=== PATIENT | female | born 1965 | race Caucasian/White ===

== ENCOUNTER 2019-10-20 13:02 | Emergency (ER) | payer BC ==
[~2019-10-20] VITALS: Ht 165.1 cm; Wt 71.7 kg
[~2019-10-20 13:02] MED LIST: HYDR-3101 PO; MELO15TA24 PO; METO25TA4 PO; PANT40TA5 PO; TRAM50TA PO
[2019-10-20 13:04] VITALS: BP 112/70
--- NOTE | 2019-10-20 13:11 | PCM.EKG ---
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
[2019-10-20 13:21] LABS: BASOPHIL % 0.2 % (0.0-0.2); EOSINOPHIL # 0.4 10^3/uL (0.0-0.2); EOSINOPHIL % 4.7 % (0.0-5.0); LYMPHOCYTES # 2.4 10^3/uL (1.0-4.8); LYMPHOCYTES % 26.1 % (24.0-44.0); MEAN CORP HGB 28.8 pg (26-34); MONOCYTES # 0.5 10^3/uL (0.3-0.8); MONOCYTES % 5.4 % (5.0-12.0); NEUTROPHIL # 5.8 10^3/uL (1.8-7.7); NEUTROPHILS % 63.5 % (41.0-85.0); RED CELL DISTRIBUTION WIDTH 13.8 % (11.5-14.5)
--- NOTE | 2019-10-20 13:27 | ER.PDOC ---
General Chief Complaint: Chest Pain-Cardiac Nature Stated Complaint: CHEST PAIN/SOB Time seen by MD: 13:22 Source: patient Exam Limitations: no limitations History of Present Illness Timing/Duration: 1/2 hour Severity/Quality: severe, pressure Radiation: no radiation Activities at Onset: rest Modifying Factors: nitroglycerin Aspirin Today: 325 mg x 1 Associated Symptoms: diaphoresis, nausea/vomiting, shortness of breath Allergies: Coded Allergies: No Known Allergies (Unverified , 04/20/19) Home Meds Active Scripts Pantoprazole Sodium (PANTOPRAZOLE SODIUM) 40 Mg Tablet.dr, 1 TAB PO DAILY, #30 TAB 0 Refills Prov:KILEY BUENO MD 04/23/19 Reported Medications Tramadol Hcl (TRAMADOL HCL) 50 Mg Tablet, 1 TAB PO BID PRN for PAIN, #60 TAB 02/27/18 Meloxicam (MELOXICAM) 15 Mg Tablet, 1 TAB PO DAILY, #30 TAB 2 Refills 02/27/18 Past Medical History Medical History: other Surgical History: cholecystectomy, hysterectomy, tubal Social History Alcohol Use: none Drug Use: none Reviewed Nursing Reviewed: Vital Signs, Abn. Noted All Other Systems: Reviewed and Negative Physical Exam General Appearance: No Apparent Distress, WD/WN HEENT: PERRL/EOMI, Normal ENT Inspection, TMs Normal, Pharynx Normal Neck: Non-Tender, Full Range of Motion, Supple, Normal Inspection Respiratory: chest non-tender, lungs clear, normal breath sounds, no respiratory distress, no accessory muscle use Extremities: Normal Range of Motion, Non-Tender, Normal Inspection, No Pedal Edema, No Calf Tenderness, Normal Capillary Refill Neurologic/Psychiatric: chronometer tester II-XII NML as Tested, No Motor/Sensory Deficits, Alert, Normal Mood/Affect, Oriented x 3 Skin: Normal Color, Warm/Dry Lymphatic: No Adenopathy Results/Orders Results/Orders Orders - JAZZ DONOHUE MD Cbc With Auto Diff (10/20/19 13:04) Comprehensive Metabolic Panel (10/20/19 13:04) Creatine Kinase (10/20/19 13:04) Creatine Kinase Mb (10/20/19 13:04) Troponin I (10/20/19 13:04) Probnp B-Type Counterintelligence Agent (10/20/19 13:04) PT (10/20/19 13:04) Partial Thromboplastin Time. (10/20/19 13:04) Helicobacter Pylori (10/20/19 13:04) D-Dimer (10/20/19 13:04) Xr Chest 1v (10/20/19 13:04) Ekg-Routine (10/20/19 13:04) Troponin I (10/20/19 15:48) Creatine Kinase Mb (10/20/19 15:48) Creatine Kinase (10/20/19 15:48) Vital Signs Date Time Temp Pulse Resp B/P (MAP) Pulse Ox O2 Delivery O2 Flow Rate FiO2 10/20/19 13:04 98.0 64 22 95 10/20/19 13:04 98.0 64 22 10/20/19 13:04 98.0 64 22 112/70 (84) 95 Room Air Laboratory Tests Test 10/20/19 13:09 10/20/19 16:07 White Blood Count 9.2 10^3/uL (4.5-11.0) Red Blood Count 4.66 10^6/uL (4.00-5.20) Hemoglobin 13.4 g/dL (12.0-15.0) Hematocrit 41.2 % (36.0-46.0) Mean Corpuscular Volume 88.4 fL (78-100) Mean Corpuscular Hemoglobin 28.8 pg (26-34) Mean Corpuscular Hemoglobin Concent 32.5 g/dL (33-37) L Red Cell Distribution Width 13.8 % (11.5-14.5) Platelet Count 296 10^3/uL (150-400) Mean Platelet Volume 10.0 fL (7.8-11.0) Neutrophils (%) (Auto) 63.5 % (41.0-85.0) Lymphocytes (%) (Auto) 26.1 % (24.0-44.0) Monocytes (%) (Auto) 5.4 % (5.0-12.0) Neutrophils # (Auto) 5.8 10^3/uL (1.8-7.7) Lymphocytes # (Auto) 2.4 10^3/uL (1.0-4.8) Monocytes # (Auto) 0.5 10^3/uL (0.3-0.8) Absolute Immature Granulocyte (auto 0.01 10^3 u/L (0-2) Immature Granulocytes % 0.10 % (0.00-0.50) Eosinophils % 4.7 % (0.0-5.0) Basophils % 0.2 % (0.0-0.2) Basophils # 0.0 10^3/uL (0.0-0.1) Eosinophil Count 0.4 10^3/uL (0.0-0.2) H Prothrombin Time 10.4 SEC (9.4-11.5) Prothrombin Time INR (Non-Therap) 1.0 Activated Partial Thromboplast Time 22.1 SEC (24.67-30.72) D-Dimer 0.44 mg/L (0.19-0.49) Sodium Level 144 mmol/L (132-145) Potassium Level 3.5 mmol/L (3.6-5.2) L Chloride Level 107.0 mmol/L (96-109) Carbon Dioxide Level 24.9 mmol/L (20.0-32) Anion Gap 15.6 Blood Urea Nitrogen 17 mg/dL (7-18) Creatinine 0.85 mg/dL (0.59-1.40) Estimated GFR () 84.7 (>/=60) BUN/Creatinine Ratio 20.0 Glucose Level 122 mg/dL (70-110) H Calcium Level 8.5 mg/dL (8.4-10.5) Total Bilirubin 0.2 mg/dL (0.2-1.0) Aspartate Amino Transferase (AST) 25 U/L (0-35) Alanine Aminotransferase (ALT) 21 U/L (12-78) Alkaline Phosphatase 131 U/L (50-136) Total Creatine Kinase 102 U/L (26-192) Pending Creatine Kinase MB 0.8 ng/mL (0.5-3.6) Pending Troponin I < 0.02 ng/mL (0.00-0.05) < 0.02 ng/mL (0.00-0.05) Pro-B-Type Natriuretic Peptide 63 pg/mL (0-125) Total Protein 6.5 g/dL (6.4-8.2) Albumin 3.7 g/dL (3.4-5.0) Globulin 2.8 Helicobacter pylori Screen NEGATIVE (NEGATIVE) EKG/XRAY/CT/US EKG: NSR, no ST T wave changes Course Sepsis Screening Results: Posi: POSITIVE SEPSIS RISK Sepsis Qualifier/Stage: SEPSIS RISK Duration or Total Time Spent w: 60 mins Vitals & review Data Vital Sign - Last 24 Hours 10/20/19 10/20/19 10/20/19 13:04 13:04 13:04 Temp 98.0 98.0 98.0 Pulse 64 64 64 Resp 22 22 22 B/P (MAP) 112/70 (84) Pulse Ox 95 95 O2 Delivery Room Air Laboratory Tests Test 10/20/19 13:09 10/20/19 16:07 White Blood Count 9.2 10^3/uL Red Blood Count 4.66 10^6/uL Hemoglobin 13.4 g/dL Hematocrit 41.2 % Mean Corpuscular Volume 88.4 fL Mean Corpuscular Hemoglobin 28.8 pg Mean Corpuscular Hemoglobin Concent 32.5 g/dL Red Cell Distribution Width 13.8 % Platelet Count 296 10^3/uL Mean Platelet Volume 10.0 fL Neutrophils (%) (Auto) 63.5 % Lymphocytes (%) (Auto) 26.1 % Monocytes (%) (Auto) 5.4 % Neutrophils # (Auto) 5.8 10^3/uL Lymphocytes # (Auto) 2.4 10^3/uL Monocytes # (Auto) 0.5 10^3/uL Absolute Immature Granulocyte (auto 0.01 10^3 u/L Immature Granulocytes % 0.10 % Eosinophils % 4.7 % Basophils % 0.2 % Basophils # 0.0 10^3/uL Eosinophil Count 0.4 10^3/uL Prothrombin Time 10.4 SEC Prothrombin Time INR (Non-Therap) 1.0 Activated Partial Thromboplast Time 22.1 SEC D-Dimer 0.44 mg/L Sodium Level 144 mmol/L Potassium Level 3.5 mmol/L Chloride Level 107.0 mmol/L Carbon Dioxide Level 24.9 mmol/L Anion Gap 15.6 Blood Urea Nitrogen 17 mg/dL Creatinine 0.85 mg/dL Estimated GFR () 84.7 BUN/Creatinine Ratio 20.0 Glucose Level 122 mg/dL Calcium Level 8.5 mg/dL Total Bilirubin 0.2 mg/dL Aspartate Amino Transf (AST/SGOT) 25 U/L Alanine Aminotransferase (ALT/SGPT) 21 U/L Alkaline Phosphatase 131 U/L Total Creatine Kinase 102 U/L Creatine Kinase MB 0.8 ng/mL Troponin I < 0.02 ng/mL < 0.02 ng/mL Pro-B-Type Natriuretic Peptide 63 pg/mL Total Protein 6.5 g/dL Albumin 3.7 g/dL Globulin 2.8 Helicobacter pylori Screen NEGATIVE Sepsis Infection Criteria Pres: Documented Infection LEVEL 1 SEPSIS INFECTION CRITE: Abdominal Pain LEVEL 2-SIRS (LIST ALL THAT AP: None/Not assessed Cardiovascular Evidence: Not Assessed or None Hematologic Evidence: None/Not assessed Hepatic Evidence: Elevated AST(SGOT)>72, Elevated ALT(SGPT)>90 Metabolic Evidence: None/Not assessed Neurological Evidence: None/Not assessed Respiratory Evidence: None/Not assessed Renal Evidence: None/Not assessed O2 Sat by Pulse Oximetry: 95 Departure Time of Disposition: 16:00 Disposition: 01 HOME, SELF-CARE Impression: Primary Impression: Angina pectoris Condition: Improved Referrals: AVILA VILLATORO MD (PCP) PRIMARY CARE PROVIDER Comments PATIENT DECLINED ADMISSION Duration or Time Spent with Pa: Elma M JAZZ DONOHUE MD Oct 20, 2019 13:27
--- NOTE | 2019-10-20 13:37 | DIREP ---
PROCEDURE:CHEST 1 VIEW COMPARISON:[facility], CR, XRAY CHEST 2 VWS, 04/17/2019, 03:28 AM. INDICATIONS:cp FINDINGS: LUNGS/PLEURA:No significant pulmonary parenchymal abnormalities. No effusions. Lungs are well-expanded and clear. No pneumonia, heart failure effusions are seen. No pneumothorax, pneumomediastinum, aortic aneurysm or mediastinal widening is seen. VASCULATURE:Normal. Unremarkable pulmonary vasculature. CARDIAC:Normal. No cardiac silhouette abnormality or cardiomegaly. MEDIASTINUM:Normal. No visible mass or adenopathy. BONES:Normal. No fracture or visible bony lesion. DJD in the right AC joint. OTHER:Negative. CONCLUSION:No acute findings in the single view of the chest. Dictated by: Jorge Luis Armstrong MD on 10/20/2019 at 01:35 PM
[2019-10-20 13:49] LABS: ALANINE AMINOTRANSFERASE(ML) 21 U/L (12-78); ALKALINE PHOSPHATASE 131 U/L (50-136); ASPARTATE AMINO TRANSFERASE 25 U/L (0-35); CALCIUM 8.5 mg/dL (8.4-10.5); GLUCOSE 122 mg/dL (70-110)
[2019-10-20 14:00] VITALS: BP 109/67
[2019-10-20 14:20] LABS: CARBON DIOXIDE 24.9 mmol/L (20.0-32)
[2019-10-20 15:00] VITALS: BP 113/71
[2019-10-20 15:45] VITALS: BP 118/71
--- NOTE | 2019-10-20 17:00 | NUR ---
UPDATE PATIENT REFUSES ADMIT AND WANTS TO SIGN OUT AMA.
== END 2019-10-20 17:17 | disposition left against medical advice (07) ==
LOC: EDBD 13:02 → ER 13:02
DX: I20.9 Angina pectoris, unspecified (principal); Z79.1 Long term (current) use of non-steroidal anti-inflammatories (NSAID); Z90.49 Acquired absence of other specified parts of digestive tract; Z90.710 Acquired absence of both cervix and uterus
CPT/HCPCS: 36415; 71045; 80053; 82550; 82553; 83880; 84484; 85025; 85379; 85610; 85730; 86677; 93005; 99285

== ENCOUNTER 2019-10-25 03:36 | Emergency (ER) | payer BC ==
[~2019-10-25] VITALS: Ht 165.1 cm; Wt 71.7 kg
[2019-10-25 03:36] VITALS: BP 160/87
--- NOTE | 2019-10-25 03:36 | NUR ---
ARRIVAL PATIENT PRESENTS WITH COMPLAINTS OF SEVERE EPIGASTRIC PAIN, MILD CHEST PAIN THAT WRAPS TO BACK THAT STARTED ~30MINS GUIDE TOUR WHILE AT REST. PATIENT STATES PAIN IS 5/10 AT THIS TIME TO EPIGASTRIC AREA. DENIES TAKING ANY MEDICATION FOR PAIN. PATIENT IS ANXIOUS AND UNABLE TO REMAIN STILL IN BED. RT CALLED FOR EKG. DO AQUILES NOTIFIED.
[2019-10-25] MEDS ORDERED: LIDOCAINE VISCOUS MM STA (03:55)
[2019-10-25] MEDS ORDERED: MYLANTA PO STA (03:55)
--- NOTE | 2019-10-25 03:56 | ER.PDOC ---
General Chief Complaint: Requesting Medical Care Stated Complaint: CHEST PAIN Time seen by MD: 03:49 Source: patient Exam Limitations: no limitations History of Present Illness Initial Comments Pt c/o epigastric pain radiating through to her back, wrapping around her lower chest like a band; onset 11 pm, steady and constant, + nausea, no emesis; denies SOB Severity/Quality: severe, pressure, tightness Radiation: back Activities at Onset: rest Prior CP/Workup: Other (seen here earlier this week for same; discharged with " angina" instructions) Nitro Today/Relief: No Nitro Taken Today Aspirin Today: No Aspirin Today (but patient does take meloxicam daily) Associated Symptoms: abdominal pain (epigastric), nausea/vomiting Allergies: Coded Allergies: No Known Allergies (Unverified , 04/20/19) Home Meds Active Scripts Pantoprazole Sodium (PANTOPRAZOLE SODIUM) 40 Mg Tablet.dr, 1 TAB PO DAILY, #30 TAB 0 Refills Prov:KILEY BUENO MD 04/23/19 Reported Medications Tramadol Hcl (TRAMADOL HCL) 50 Mg Tablet, 1 TAB PO BID PRN for PAIN, #60 TAB 02/27/18 Meloxicam (MELOXICAM) 15 Mg Tablet, 1 TAB PO DAILY, #30 TAB 2 Refills 02/27/18 Past Medical History Medical History: other (pancreatitis and arthritis) Surgical History: cholecystectomy, hysterectomy, tubal Social History Smoking: cigarettes Drug Use: none Constitutional: no symptoms reported EENTM: no symptoms reported Respiratory: no symptoms reported Cardiovascular: chest pain Gastrointestinal: abdominal pain, nausea Musculoskeletal: no symptoms reported Skin: no symptoms reported Physical Exam General Appearance: Moderate Distress (writhing on the bed in pain) Respiratory: chest non-tender, lungs clear, normal breath sounds, no r espiratory distress, no accessory muscle use Cardiovascular: Regular Rate, Rhythm, No Edema Gastrointestinal: Normal Bowel Sounds, No Pulsatile Mass, Soft Extremities: Normal Range of Motion, Non-Tender, No Pedal Edema Neurologic/Psychiatric: Alert, Normal Mood/Affect, Oriented x 3 Skin: Normal Color, Warm/Dry Lymphatic: No Adenopathy Progress Progress pain is much better after [place]/viscous lidocaine EKG/XRAY/CT/US EKG: NSR, no ST T wave changes XRAY: chest (No edema or infiltrate seen) Departure Time of Disposition: 05:10 Disposition: 07 AGAINST MEDICAL ADVICE Impression: Primary Impression: Pancreatitis, acute Condition: Improved Referrals: AVILA VILLATORO MD (PCP) PRIMARY CARE PROVIDER Comments Patient became irate over IV start attempts and signed out AMA. Duration or Time Spent with Pa: 1.5 hours Problem Qualifiers Primary Impression: Pancreatitis, acute Pancreatitis type: unspecified pancreatitis type Acute pancreatitis complication: unspecified Qualified Codes: K85.90 - Acute pancreatitis without necrosis or infection, unspecified FADUMO KWAN DO Oct 25, 2019 03:56
[2019-10-25] MEDS ORDERED: LIDOCAINE VISCOUS ONE (03:58)
[2019-10-25] MEDS ORDERED: MYLANTA ONE (03:58)
--- NOTE | 2019-10-25 03:58 | PCM.EKG ---
[facility] Test Date: 2019-10-25 Test Time: 03:50:35 Pat Name: EVA BARRIOS Department: Room: Gender: F Rn Transfer: [place] : 1965 Requested By: FADUMO KWAN Order Number: [id number] Reading MD: Measurements Intervals [place] Rate: 56 P: 75 ID: [id number] QRS: 87 QRSD: 96 T: 76 QT: 449 QTc: 434 Interpretive Statements Sinus rhythm Compared to ECG 10/15/2019 18:44:44 No significant changes Please click the below link to view image of tracing.
[2019-10-25 04:12] LABS: BASOPHIL # 0.1 10^3/uL (0.0-0.1); BASOPHIL % 0.5 % (0.0-0.2); EOSINOPHIL # 1.2 10^3/uL (0.0-0.2); EOSINOPHIL % 11.9 % (0.0-5.0); LYMPHOCYTES # 3.7 10^3/uL (1.0-4.8); LYMPHOCYTES % 35.1 % (24.0-44.0); MEAN CORP HGB 28.7 pg (26-34); MONOCYTES # 0.9 10^3/uL (0.3-0.8); MONOCYTES % 8.4 % (5.0-12.0); NEUTROPHIL # 4.6 10^3/uL (1.8-7.7); NEUTROPHILS % 43.9 % (41.0-85.0); RED CELL DISTRIBUTION WIDTH 14.1 % (11.5-14.5)
--- NOTE | 2019-10-25 04:18 | DIREP ---
PROCEDURE:CHEST 1 VIEW COMPARISON:[facility], CR, XRAY CHEST SINGLE VW, 04/09/2016, 11:26 PM. [facility], CR, XRAY CHEST SINGLE VW, 10/20/2019, 01:03 PM. INDICATIONS:chest pain FINDINGS: LUNGS/PLEURA:Tiny calcified granuloma in the lateral aspect of the right upper lung, not clinically significant. No airspace consolidation or pleural effusion. VASCULATURE:Normal. Unremarkable pulmonary vasculature. CARDIAC:Normal. No cardiac silhouette abnormality or cardiomegaly. MEDIASTINUM:Normal. No visible mass or adenopathy. BONES:No acute pathology. OTHER:Negative. CONCLUSION:No acute cardiac or pulmonary disease. No significant change from the prior exam. Dictated by: Willian Moura M.D. on 10/25/2019 at 04:16 AM
[2019-10-25 04:30] VITALS: BP 127/66
--- NOTE | 2019-10-25 04:34 | NUR ---
CRITICAL LAB D-DIMER 1.24 DO AQUILES NOTIFIED
[2019-10-25 04:43] LABS: ALANINE AMINOTRANSFERASE(ML) 20 U/L (12-78); ALKALINE PHOSPHATASE 167 U/L (50-136); ASPARTATE AMINO TRANSFERASE 21 U/L (0-35); CALCIUM 9.1 mg/dL (8.4-10.5); CARBON DIOXIDE 27.8 mmol/L (20.0-32); GLUCOSE 113 mg/dL (70-110)
--- NOTE | 2019-10-25 04:45 | NUR ---
IV IV ATTEMPTED BY RN x1. PATIENT REFUSED FOR IV TO BE PLACED IN AC. IV ATTEMPTED IN LEFT FOREARM AND WAS SUCCESSFUL. PATIENT THEN JERKED AWAY AND STARTED YELLING AND CURSING AT RN. IV CATHETER WAS NOT TAPED DOWN WHEN PATIENT JERKED AWAY AND WHEN FLUSHED, IV INFILTRATED. IV REMOVED WITH TIP INTACT. BANDAGE APPLIED. PATIENT BEGAN TO BERATE RN ONCE AGAIN. RN LEFT ROOM AND CALLED DIPESH RIVERSELECTRICAL ENGINEERING DRAFTING OFFICER TO COME START IV ON PATIENT.
[2019-10-25 05:00] VITALS: BP 141/85
--- NOTE | 2019-10-25 05:08 | NUR ---
SHARON RIVERS, CONTENT STRATEGIST, AT BEDSIDE TO START IV. SHE TRIED TO EXPLAIN TO PATIENT NOT TO TENSE UP AND PATIENT STARTING YELLING AND CURSING AT RN. PATIENT YELLING THAT SHE WILL "JUST LEAVE" AND "I'LL SIGN WHATEVER"! SHARON FORM SIGNED BY PATIENT AND PATIENT LEFT ER IN STABLE CONDITION WITH STEADY GAIT. DO AQUILES NOTIFIED.
== END 2019-10-25 05:10 | disposition left against medical advice (07) ==
LOC: ER 03:36
DX: K85.90 Acute pancreatitis without necrosis or infection, unspecified (principal); F17.210 Nicotine dependence, cigarettes, uncomplicated; Z79.899 Other long term (current) drug therapy; Z90.49 Acquired absence of other specified parts of digestive tract; Z90.710 Acquired absence of both cervix and uterus
CPT/HCPCS: 36415; 71045; 80053; 82150; 82550; 82553; 83690; 83880; 84484; 85025; 85379; 85610; 85730; 86677; 93005; 99285; J3490

== ENCOUNTER 2019-10-25 13:12 | Inpatient (IN) | payer BC ==
[~2019-10-25] VITALS: Ht 165.1 cm; Wt 74.0 kg
[2019-10-25 13:25] VITALS: BP 145/85
--- NOTE | 2019-10-25 13:25 | NUR ---
ARRIVAL PT ARRIVED TO ER AMBULATORY WITH C/O ABDOMINAL PAIN. PT TRIAGED AND TRANSFERED TO ER 4.
[2019-10-25] MEDS ORDERED: NS 1000ML 1,000 ML IV STA (13:48)
[2019-10-25] MEDS ORDERED: MORPHINE SULFATE IV STA (13:51)
--- NOTE | 2019-10-25 13:54 | ER.PDOC ---
General Chief Complaint: Abdomen Pain Stated Complaint: STOMACH PAIN Time seen by MD: 13:51 Source: patient Exam Limitations: no limitations History of Present Illness Initial Comments Abdominal pain since last night, seen here early this morning and left AMA. Severity/Quality: moderate Radiation: back Associated Symptoms: nausea/vomiting Exacerbated by: nothing Relieved By: nothing Allergies: Coded Allergies: No Known Allergies (Unverified , 04/20/19) Home Meds Active Scripts Pantoprazole Sodium (PANTOPRAZOLE SODIUM) 40 Mg Tablet.dr, 1 TAB PO DAILY, #30 TAB 0 Refills Prov:KILEY BUENO MD 04/23/19 Reported Medications Tramadol Hcl (TRAMADOL HCL) 50 Mg Tablet, 1 TAB PO BID PRN for PAIN, #60 TAB 02/27/18 Meloxicam (MELOXICAM) 15 Mg Tablet, 1 TAB PO DAILY, #30 TAB 2 Refills 02/27/18 Vital Signs First Vital Signs Date Time Temp Pulse Resp B/P (MAP) Pulse Ox O2 Delivery O2 Flow Rate FiO2 10/25/19 13:21 97.1 70 16 99 10/25/19 13:25 145/85 (105) Room Air Last Vital Signs Date Time Temp Pulse Resp B/P (MAP) Pulse Ox O2 Delivery O2 Flow Rate FiO2 10/25/19 13:25 97.1 70 16 10/25/19 13:25 145/85 (105) 99 Room Air Past Medical History Medical History: no pertinent history Surgical History: cholecystectomy, hysterectomy, tubal Social History Alcohol Use: none Drug Use: none Constitutional: no symptoms reported EENTM: no symptoms reported Respiratory: no symptoms reported Cardiovascular: no symptoms reported Gastrointestinal: see HPI Genitourinary: no symptoms reported All Other Systems: Reviewed and Negative Physical Exam General Appearance: No Apparent Distress, WD/WN Neck: Non-Tender, Full Range of Motion, Supple, Normal Inspection Respiratory: chest non-tender, lungs clear, normal breath sounds, no respiratory distress, no accessory muscle use Cardiovascular: Normal Peripheral Pulses, Regular Rate, Rhythm, No Edema, No Gallop, No JVD, No Murmur Gastrointestinal: Normal Bowel Sounds, No Organomegaly, No Pulsatile Mass, Guarding, Tenderness (epigastric) Back: Normal Inspection, No CVA Tenderness, No Vertebral Tenderness Extremities: Normal Range of Motion, Non-Tender, Normal Inspection, No Pedal Edema, No Calf Tenderness, Normal Capillary Refill, Pelvis Stable Neurologic/Psychiatric: baling machine tender II-XII NML as Tested, No Motor/Sensory Deficits, Alert, Normal Mood/Affect, Oriented x 3 Skin: Normal Color, Warm/Dry Results/Orders Results/Orders Orders - CTAINA LUCAS MD Ct Abd/Pel With Iv Contrast (10/25/19 13:50) 0.9 % Sodium Chloride (Ns 1000ml) (10/25/19 13:48) Morphine Sulfate (Morphine Sulfate) (10/25/19 13:51) 0.9 % Sodium Chloride (Ns 1000ml) (10/25/19 13:59) Vital Signs Date Time Temp Pulse Resp B/P (MAP) Pulse Ox O2 Delivery O2 Flow Rate FiO2 10/25/19 13:25 97.1 70 16 10/25/19 13:25 97.1 70 16 145/85 (105) 99 Room Air 10/25/19 13:21 97.1 70 16 99 Administered Medications Medications (Trade) Dose Ordered Sig/Rosario Route PRN Reason Start Time Stop Time Status Last Admin Dose Admin Morphine Sulfate (Morphine Sulfate) 4 mg STAT STAT IV 10/25/19 13:51 10/25/19 13:52 UNV 10/25/19 14:01 4 MG Sodium Chloride 1,000 ml @ 1,200 mls/hr Q50M STAT IV 10/25/19 13:48 10/25/19 14:37 DC 10/25/19 14:01 1,200 MLS/HR EKG/XRAY/CT/US CT Comments: Nothing acute on CT abdomen/pelvis Course Sepsis Screening Results: Posi: POSITIVE SEPSIS RISK Sepsis Qualifier/Stage: SEPSIS RISK Duration or Total Time Spent w: 1.5 hours Vitals & review Data Vital Sign - Last 24 Hours 10/25/19 10/25/19 10/25/19 13:21 13:25 13:25 Temp 97.1 97.1 97.1 Pulse 70 70 70 Resp 16 16 16 B/P (MAP) 145/85 (105) Pulse Ox 99 99 O2 Delivery Room Air Current Medications Medications (Trade) Dose Ordered Sig/Rosario PRN Reason Start Time Stop Time Status Last Admin Morphine Sulfate (Morphine Sulfate) 4 mg STAT STAT 10/25/19 13:51 10/25/19 13:52 UNV 10/25/19 14:01 Sepsis Infection Criteria Pres: Documented Infection LEVEL 1 SEPSIS INFECTION CRITE: Abdominal Pain LEVEL 2-SIRS (LIST ALL THAT AP: None/Not assessed Cardiovascular Evidence: Not Assessed or None Hematologic Evidence: None/Not assessed Hepatic Evidence: Elevated AST(SGOT)>72, Elevated ALT(SGPT)>90 Metabolic Evidence: None/Not assessed Neurological Evidence: None/Not assessed Respiratory Evidence: None/Not assessed Renal Evidence: None/Not assessed O2 Sat by Pulse Oximetry: 99 Departure Time of Disposition: 16:05 Disposition: 01 HOME, SELF-CARE Impression: Primary Impression: Acute pancreatitis Condition: Stable Referrals: AVILA VILLATORO MD (PCP) PRIMARY CARE PROVIDER Comments Admitted to Dr. Orellana Duration or Time Spent with Pa: 45 mins Problem Qualifiers Primary Impression: Acute pancreatitis Pancreatitis type: unspecified pancreatitis type Acute pancreatitis complication: unspecified Qualified Codes: K85.90 - Acute pancreatitis without necrosis or infection, unspecified CATINA LUCAS MD Oct 25, 2019 13:54
[2019-10-25] MEDS ORDERED: NS 1000ML 1,000 ML ONE (13:59)
[2019-10-25 14:30] VITALS: BP 137/81
--- NOTE | 2019-10-25 15:13 | DIREP ---
P open a ROCEDURE:CT ABD/PELVIS WITH CONTRAST TECHNIQUE:No oral contrast was given. Following the intravenous administration of contrast material, venous phase cuts were obtained through the abdomen and pelvis. The images were viewed at lung and soft tissue settings. Sagittal and coronal reconstructions are provided. COMPARISON:[facility], CT, CT ABD/PELVIS W/ CONTRAST, 10/15/2019, 07:39 PM. INDICATIONS:Upper abdominal pain FINDINGS: LOWER CHEST:No infiltrate or pleural effusion. LIVER:Normal. BILIARY:Cholecystectomy. No biliary duct dilatation. PANCREAS:Normal. SPLEEN:Normal. URINARY TRACT:Normal nephrograms without obstruction or perinephric inflammation. Unremarkable urinary bladder. ADRENALS:Stable small bilateral adrenal nodules. AORTA/VASCULAR:Aortoiliac calcification without dilatation. RETROPERITONEUM:Normal. BOWEL/MESENTERY:No bowel obstruction, inflammatory stranding, free fluid or air. Normal appendix. ABDOMINAL WALL:Normal. PELVIS:Hysterectomy. BONES:Advanced L5/S1 disc degenerative changes. OTHER:Normal. CONCLUSION:Negative CT abdomen/pelvis. No acute process or significant change. Dictated by: Litzy Sandhu MD on 10/25/2019 at 03:06 PM
[2019-10-25 15:30] VITALS: BP 133/84
[2019-10-25] MEDS ORDERED: D5W-1/2 NS/KCL 20MEQ 1,000 ML IV STA (16:06)
--- NOTE | 2019-10-25 16:39 | NUR ---
DEPART PATIENT TAKEN TO ROOM 330 VIA WHEELCHAIR BY [facility] INST[facility]. REPORT CALLED TO CATHRYN HAMM.
--- NOTE | 2019-10-25 16:44 | NUR ---
Pt on unit pt arrived on unit via wheelchair from ER. Received report and assumed care of pt. Pt transferred to bed independently. Pt denies pain, shortness of breath, or N/V. No s/s of distress noted. Call light within reach.
[2019-10-25 17:20] VITALS: BP 128/79
--- NOTE | 2019-10-25 17:52 | PCM.HP ---
History of Present Illness Reason for Visit: acute abdominal pain History of Present Illness Pt has Hx of Arthritis and taking NSAIDS daily for 2 years now this is the second visit with abdominal pain - mostly confined to epigastric area for almost 2 weeks. It's gotten worse, sharp, radiating, 10/10 and now unbearable to the po int of coming to ER for help. Subjective fever, and +N/V . No diarrhea. No SOB, or CP. Past Medical History Hepatobiliary: Cholelithiasis Past Surgical History: Cholecystectomy, Tubal Ligation, Other Past Social History Smoke: 1 pack per day Alcohol: none Drugs: None Lives: with Family Travel Hx EBOLA RISK:Travel to/contact w: No Is pt experiencing any Ebola s: No Review of Systems Constitutional: Fever, Chills, Sweats; No: Weakness, Malaise, Other Gastrointestinal: Nausea, Vomiting, Abdominal Pain Allergies: Coded Allergies: No Known Allergies (Unverified , 04/20/19) Scheduled Meloxicam (Meloxicam), 1 TAB PO DAILY, (Reported) Discontinued Medications Pantoprazole Sodium (Pantoprazole Sodium), 1 TAB PO DAILY Discontinued Reason: No Longer Taking Tramadol Hcl (Tramadol Hcl), 1 TAB PO BID PRN for PAIN, (Reported) Discontinued Reason: No Longer Taking VTE VTE Risk Total Score: 1 VTE Risk Score VTE Risk: Score 0-1 = Low Risk (Aggressive mobilization; early ambulation; no VTE prophylaxis required) Score 2: Moderate Risk (Intermittent/Pneumatic Compression Device OR Lovenox/Heparin/Coumadin) Score 3-4: High Risk (Intermittent/Pneumatic Compression Device AND Lovenox/Heparin/Coumadin) Score > or =5: Highest Risk (Intermittent/Pneumatic Compression Device AND Lovenox/Heparin/Coumadin) VTE VTE Present on Admission: No Currently receiving anticoagul: No VTE Risk Total Score: 1 Exam Vital Signs Vital Signs Date Time Temp Pulse Resp B/P (MAP) Pulse Ox O2 Delivery O2 Flow Rate FiO2 10/25/19 17:20 98.0 72 18 128/79 (95) 98 Room Air General Appearance: Alert, Oriented X3, Cooperative HEENT: Atraumatic, PERRLA, EOMI, Mucous membr. moist/pink Respiratory: Clear to auscultation, Normal air movement, Other Cardiovascular: Regular rate, Normal S1, Normal S2 Abdominal: Normal bowel sounds, Soft, No hepatospenomegaly, No masses, Other Extremities: No clubbing, No cyanosis, No edema, Normal pulses Skin: No rash, No breakdown, No lesions Neuro: Normal gait, Normal speech, Strength at 5/5 X4 ext Psych/Mental Status: Mental status NL, Mood NL LAB RESULTS CBC and CMP - normal Current Medications Medications (Trade) Dose Ordered Sig/Rosario Route PRN Reason Start Time Stop Time Status Last Admin Dose Admin Sodium Chloride 1,000 ml @ 1,200 mls/hr Q50M STAT IV 10/25/19 13:48 10/25/19 14:37 DC 10/25/19 14:01 Morphine Sulfate (Morphine Sulfate) 4 mg STAT STAT IV 10/25/19 13:51 10/25/19 13:52 UNV 10/25/19 14:01 Sodium Chloride 1,000 ml @ ud STK-MED ONCE .ROUTE 10/25/19 13:59 10/25/19 14:00 DC Potassium Chloride/Dextrose/ Sod Cl 1,000 ml @ 100 mls/hr Q10H STAT IV 10/25/19 16:06 10/26/19 02:05 10/25/19 16:06 Morphine Sulfate (Morphine Sulfate) 2 mg Q4H PRN IV PAIN 4 - 6 10/25/19 16:30 11/24/19 16:29 Assessment/Plan Assessment/Plan Problems: (1) Acute pancreatitis Status: Acute ICD Code: K85.90 - Acute pancreatitis without necrosis or infection, unspecified SNOMED: [id number] Patient History: FH: arthritis 32 MOTHER FH: atrial fibrillation 32 MOTHER FH: heart attack 33 FATHER Hypertension 33 FATHER No known health problems G8 SISTER 19 CHILD 19 CHILD 19 CHILD Unknown 33 FATHER G8 BROTHER G8 SISTER No Family History of: Alzheimer's disease Asthma Cerebrovascular disorder Chronic obstructive pulmonary disease Congestive heart failure Diabetes insipidus Diabetes mellitus Parkinson's disease Plan CT scan was negative. Other possibilities include Gastritis from NSAIDs, Ulcers, vs. gallstones. RUQ U/S H. Pylori serology aggressive IVF bowel rest DVT & GI prophylaxis Problem Qualifiers (1) Acute pancreatitis: Pancreatitis type: unspecified pancreatitis type Acute pancreatitis complication: unspecified Qualified Codes: K85.90 - Acute pancreatitis without necrosis or infection, unspecified SARA TOVAR DO Oct 25, 2019 17:52
[2019-10-25] MEDS ORDERED: XANAX PO PRN (18:00)
[2019-10-25] MEDS ORDERED: GENASYME PO PRN (18:00)
[2019-10-25] MEDS ORDERED: TUMS PO PRN (18:00)
[2019-10-25] MEDS ORDERED: TYLENOL PO PRN (18:00)
[2019-10-25] MEDS ORDERED: LOMOTIL PO PRN (18:00)
[2019-10-25] MEDS ORDERED: ULTRAM PO PRN (18:00)
[2019-10-25] MEDS ORDERED: MIRALAX PO PRN (18:00)
[2019-10-25] MEDS: LOVENOX SQ SCH ×2 (18:00→20:36)
[2019-10-25] MEDS ORDERED: BENADRYL PO PRN ×2 (18:00)
[2019-10-25] MEDS: MORPHINE SULFATE IV PRN (18:19)
[2019-10-25 19:36] LABS: BILIRUBIN,URINE NEGATIVE (NEGATIVE); UROBILINOGEN,URINE NORMAL (NEGATIVE)
[2019-10-25 19:40] LABS: APPEARANCE,URINE CLEAR (CLEAR); UA COLOR YELLOW (YELLOW)
[2019-10-25] MEDS: PROTONIX IV IV SCH (20:36)
[2019-10-25 20:56] VITALS: BP 150/84
[2019-10-26 00:47] VITALS: BP 138/76
[2019-10-26 05:06] LABS: BASOPHIL % 0.1 % (0.0-0.2); EOSINOPHIL # 1.1 10^3/uL (0.0-0.2); EOSINOPHIL % 13.6 % (0.0-5.0); LYMPHOCYTES # 1.8 10^3/uL (1.0-4.8); LYMPHOCYTES % 21.5 % (24.0-44.0); MEAN CORP HGB 28.8 pg (26-34); MONOCYTES # 0.7 10^3/uL (0.3-0.8); MONOCYTES % 8.2 % (5.0-12.0); NEUTROPHIL # 4.6 10^3/uL (1.8-7.7); NEUTROPHILS % 56.5 % (41.0-85.0); RED CELL DISTRIBUTION WIDTH 14.2 % (11.5-14.5)
[2019-10-26 05:22] LABS: CALCIUM 8.8 mg/dL (8.4-10.5); CARBON DIOXIDE 26.4 mmol/L (20.0-32)
[2019-10-26 05:36] VITALS: BP 113/64
[2019-10-26 07:15] VITALS: BP 123/68
--- NOTE | 2019-10-26 08:21 | NUR ---
Protonix not available in [facility] called pharmacist notified Nany.
[2019-10-26] MEDS ORDERED: PROTONIX IV IV SCH (09:00)
[2019-10-26] MEDS: PROTONIX IV IV SCH ×2 (09:02→20:30)
[2019-10-26 11:30] VITALS: BP 118/66
[2019-10-26] MEDS ORDERED: D5W-1/2 NS/KCL 20MEQ 1,000 ML ONE (11:31)
[2019-10-26] MEDS: ZOFRAN 4 MG/2 ML VIAL IV PRN ×2 (11:35→19:20)
--- NOTE | 2019-10-26 12:39 | PRM.PN ---
Subjective Subjective Date: Oct 26, 2019 Time: 12:30 Subjective Patient feeling better, requesting diet. Labs reviewed. Patient will likely need outpatient EGD if symptoms do not improve. Pending US. Patient History: FH: arthritis 32 MOTHER FH: atrial fibrillation 32 MOTHER FH: heart attack 33 FATHER Hypertension 33 FATHER No known health problems G8 SISTER 19 CHILD 19 CHILD 19 CHILD Unknown 33 FATHER G8 BROTHER G8 SISTER No Family History of: Alzheimer's disease Asthma Cerebrovascular disorder Chronic obstructive pulmonary disease Congestive heart failure Diabetes insipidus Diabetes mellitus Parkinson's disease VTE VTE Risk Total Score: 1 VTE Risk Score VTE Risk: Score 0-1 = Low Risk (Aggressive mobilization; early ambulation; no VTE prophylaxis required) Score 2: Moderate Risk (Intermittent/Pneumatic Compression Device OR Lovenox/Heparin/Coumadin) Score 3-4: High Risk (Intermittent/Pneumatic Compression Device AND Lovenox/Heparin/Coumadin) Score > or =5: Highest Risk (Intermittent/Pneumatic Compression Device AND Lovenox/Heparin/Coumadin) Review of Systems Allergies: Coded Allergies: No Known Allergies (Unverified , 04/20/19) Scheduled Meloxicam (Meloxicam), 1 TAB PO DAILY, (Reported) Discontinued Medications Pantoprazole Sodium (Pantoprazole Sodium), 1 TAB PO DAILY Discontinued Reason: No Longer Taking Tramadol Hcl (Tramadol Hcl), 1 TAB PO BID PRN for PAIN, (Reported) Discontinued Reason: No Longer Taking Objective Vitals and I/O Vital Sign - Last 24 Hours 10/25/19 10/25/19 10/25/19 10/25/19 13:21 13:25 13:25 14:30 Temp 97.1 97.1 97.1 Pulse 70 70 70 63 Resp 16 16 16 16 B/P (MAP) 145/85 (105) 137/81 (99) Pulse Ox 99 99 97 O2 Delivery Room Air Room Air 10/25/19 10/25/19 10/25/19 10/25/19 15:30 17:17 17:20 20:56 Temp 98.0 98.1 Pulse 65 72 66 Resp 16 18 20 B/P (MAP) 133/84 (100) 128/79 (95) 150/84 (106) Pulse Ox 96 98 97 O2 Delivery Room Air Room Air Room Air Room Air 10/25/19 10/26/19 10/26/1929/19 22:23 00:47 05:36 07:15 Temp 97.8 98.4 Pulse 61 55 Resp 17 18 B/P (MAP) 138/76 (96) 113/64 (80) Pulse Ox 96 94 O2 Delivery Room Air Room Air Room Air Room Air 10/26/19 10/26/19 07:15 11:30 Temp 97.9 97.8 Pulse 56 58 Resp 18 18 B/P (MAP) 123/68 (86) 118/66 (83) Pulse Ox 95 97 O2 Delivery Room Air Room Air Intake and Output 10/25/19 10/25/19 10/26/19 15:00 23:00 07:00 Output Total 825 ml Balance -825 ml General: Alert, Oriented X3, Cooperative HEENT: Atraumatic, PERRLA, EOMI, Mucous membr. moist/pink Neck: Supple, No JVD Lungs: Clear to auscultation, Normal air movement Heart: Regular rate, Normal S1, Normal S2 Abdomen: Normal bowel sounds, Soft, No tenderness Extremities: No edema, Normal pulses Skin: No rashes, No breakdown, No significant lesion Neuro: Normal gait, Normal speech, Strength at 5/5 X4 ext, Normal tone, Sensation intact, Cranial nerves 3-12 NL Psych/Mental Status: Mental status NL, Mood NL All Results(Lab/Rad) Laboratory Tests Test 10/25/19 13:30 10/26/19 04:40 Urine Collection Type VOID Urine Color YELLOW Urine Appearance CLEAR Urine Bilirubin NEGATIVE MG/DL Urine Ketones NEGATIVE Urine Specific [place] 1.015 Urine pH 6.5 Urine Protein NEGATIVE Urine Urobilinogen NORMAL Urine Nitrate NEGATIVE Urine Leukocyte Esterase NEGATIVE Urine Blood NEGATIVE Urine WBC WBC/HPF Urine Glucose NORMAL White Blood Count 8.2 10^3/uL Red Blood Count 5.00 10^6/uL Hemoglobin 14.4 g/dL Hematocrit 43.8 % Mean Corpuscular Volume 87.6 fL Mean Corpuscular Hemoglobin 28.8 pg Mean Corpuscular Hemoglobin Concent 32.9 g/dL Red Cell Distribution Width 14.2 % Platelet Count 280 10^3/uL Mean Platelet Volume 10.2 fL Neutrophils (%) (Auto) 56.5 % Lymphocytes (%) (Auto) 21.5 % Monocytes (%) (Auto) 8.2 % Neutrophils # (Auto) 4.6 10^3/uL Lymphocytes # (Auto) 1.8 10^3/uL Monocytes # (Auto) 0.7 10^3/uL Absolute Immature Granulocyte (auto 0.01 10^3 u/L Absolute Eosinophils (auto) 1.1 10^3/uL Immature Granulocytes % 0.10 % Eosinophils % 13.6 % Basophils % 0.1 % Basophils # 0.0 10^3/uL Sodium Level 141 mmol/L Potassium Level 5.2 mmol/L Chloride Level 109.0 mmol/L Carbon Dioxide Level 26.4 mmol/L Glucose Level 112 mg/dL Blood Urea Nitrogen 10 mg/dL Creatinine 0.70 mg/dL Calcium Level 8.8 mg/dL Anion Gap 10.8 Estimated GFR () 105.9 BUN/Creatinine Ratio 14.0 Current Medications Medications (Trade) Dose Ordered Sig/Rosario Route PRN Reason Start Time Stop Time Status Last Admin Dose Admin Sodium Chloride 1,000 ml @ 1,200 mls/hr Q50M STAT IV 10/25/19 13:48 10/25/19 14:37 DC 10/25/19 14:01 Morphine Sulfate (Morphine Sulfate) 4 mg STAT STAT IV 10/25/19 13:51 10/25/19 21:01 DC 10/25/19 14:01 Sodium Chloride 1,000 ml @ STK-MED ONCE .ROUTE 10/25/19 13:59 10/25/19 14:00 DC Potassium Chloride/Dextrose/ Sod Cl 1,000 ml @ 100 mls/hr Q10H STAT IV 10/25/19 16:06 10/26/19 02:05 DC 10/25/19 16:06 Morphine Sulfate (Morphine Sulfate) 2 mg Q4H PRN IV PAIN 4 - 6 10/25/19 16:30 11/24/19 16:29 10/25/19 18:19 Ondansetron HCl (Zofran 4 Mg/2 ml Vial) 4 mg Q4H PRN IV NAUSEA / VOMITING 10/25/19 18:00 11/24/19 17:59 10/26/19 11:35 Alprazolam (Xanax) 0.25 mg Q6H PRN PO ANXIETY 10/25/19 18:00 11/24/19 17:59 Tramadol HCl (Ultram) 50 mg Q4HR PRN PO PAIN 4 - 6 10/25/19 18:00 11/24/19 17:59 Acetaminophen (Tylenol) 650 mg Q4H PRN PO PAIN 10/25/19 18:00 11/24/19 17:59 Calcium Carbonate/ Glycine (Tums) 1,000 mg Q4HR PRN PO INDIGESTION 10/25/19 18:00 11/24/19 17:59 Pantoprazole Sodium (Protonix Iv) 40 mg DAILY IV 10/26/19 09:00 10/25/19 18:59 DC Polyethylene Glycol (Miralax) 17 gm DAILY PRN PO CONSTIPATION 10/25/19 18:00 11/24/19 17:59 Enoxaparin Sodium (Lovenox) 40 mg Q24HRS SQ 10/25/19 18:00 11/24/19 17:59 Diphenoxylate HCl/ Atropine (Lomotil) 1 each PRN PRN PO DIARRHEA 10/25/19 18:00 11/24/19 17:59 Simethicone (Genasyme) 80 mg Q6HR PRN PO GAS 10/25/19 18:00 11/24/19 17:59 Diphenhydramine HCl (Benadryl) 25 mg Q6HR PRN PO INSOMNIA 10/25/19 18:00 10/25/19 21:00 DC Diphenhydramine HCl (Benadryl) 25 mg Q6HR PRN PO ITCHING 10/25/19 18:00 11/24/19 17:59 Pantoprazole Sodium (Protonix Iv) 40 mg DAILY IV 10/25/19 19:00 11/24/19 18:59 10/26/19 09:02 Potassium Chloride/Dextrose/ Sod Cl 1,000 ml @ STK-MED ONCE .ROUTE 10/26/19 11:31 10/26/19 11:33 DC Course Sepsis Screening Results: Posi: NEGATIVE Sepsis Qualifier/Stage: NO DEFINITE RISK Duration or Total Time Spent w: 45 mins Vitals & review Data Vital Sign - Last 24 Hours 10/25/19 10/25/19 10/25/19 13:21 13:25 13:25 Temp 97.1 97.1 97.1 Pulse 70 70 70 Resp 16 16 16 B/P (MAP) 145/85 (105) Pulse Ox 99 99 O2 Delivery Room Air Current Medications Medications (Trade) Dose Ordered Sig/Rosario PRN Reason Start Time Stop Time Status Last Admin Morphine Sulfate (Morphine Sulfate) 4 mg STAT STAT 10/25/19 13:51 10/25/19 13:52 UNV 10/25/19 14:01 Sepsis Infection Criteria Pres: Documented Infection LEVEL 1 SEPSIS INFECTION CRITE: None/Not assessed LEVEL 2-SIRS (LIST ALL THAT AP: None/Not assessed Cardiovascular Evidence: Not Assessed or None Hematologic Evidence: None/Not assessed Hepatic Evidence: Elevated AST(SGOT)>72, Elevated ALT(SGPT)>90 Metabolic Evidence: None/Not assessed Neurological Evidence: None/Not assessed Respiratory Evidence: None/Not assessed Renal Evidence: None/Not assessed O2 Sat by Pulse Oximetry: 97 Assessment/Plan Assessment/Plan Assessment/Plan 1. Acute Pancreatitis: cont IVF, start CLD today. Repeat Lipase in AM. CT ne gative, pending U/S. Symptoms possibly 2/2 gastritis. Patient will need outpatient EGD. H. Pylori negative. If symptoms persist or patient unable to tolerate diet, will consult surgery for EGD. Cont IV PPI. 2. PPx: PPI, Lovenox KILEY BUENO MD Oct 26, 2019 12:39
[2019-10-26 16:56] VITALS: BP 119/75
[2019-10-26] MEDS: LOVENOX SQ SCH (18:00)
[2019-10-26 19:42] VITALS: BP 121/61
[2019-10-27] MEDS: MORPHINE SULFATE IV PRN ×3 (04:42→23:59)
[2019-10-27 05:00] VITALS: BP 104/63
[2019-10-27 05:01] LABS: BASOPHIL % 0.3 % (0.0-0.2); EOSINOPHIL # 1.2 10^3/uL (0.0-0.2); EOSINOPHIL % 16.2 % (0.0-5.0); LYMPHOCYTES # 2.2 10^3/uL (1.0-4.8); LYMPHOCYTES % 30.1 % (24.0-44.0); MEAN CORP HGB 28.8 pg (26-34); MONOCYTES # 0.6 10^3/uL (0.3-0.8); MONOCYTES % 7.8 % (5.0-12.0); NEUTROPHIL # 3.4 10^3/uL (1.8-7.7); NEUTROPHILS % 45.5 % (41.0-85.0); RED CELL DISTRIBUTION WIDTH 14.1 % (11.5-14.5)
[2019-10-27 05:14] LABS: CARBON DIOXIDE 27.4 mmol/L (20.0-32)
[2019-10-27 07:16] VITALS: BP 129/69
[2019-10-27] MEDS: PROTONIX IV IV SCH ×2 (07:45→22:08)
[2019-10-27 08:11] LABS: EOSINOPHIL 14 % (1-4); LYMPHOCYTE 37 % (25-36); MONOCYTE 5 % (3-9); SEGMENTED NEUTROPHILS 44 % (31-76)
[2019-10-27] MEDS: ZOFRAN 4 MG/2 ML VIAL IV PRN (08:50)
--- NOTE | 2019-10-27 10:30 | NUR ---
DISCHARGE PLAN CM VISITED WITH PATIENT REGARDING D/C PLAN AND GOALS. PATIENT LIVES AT HOME ALONE AND IS INDEPENDENT OF ADLS. HER PCP IS DR VILLATORO. SHE IF FINANCIALLY ABLE TO PAY FOR MEDICATIONS, UNLESS IT IS LIKE 250.00 PER PATIENT. CM PROVIDED SHEPHARDS HELPING HANDS CONTACT INFORMATION TO PATIENT. SHE DENIES THE USE OF DME IN THE HOME AND FURTHER RESOURCES. DISCHARGE GOAL IS FOR PATIENT TO D/C HOME ALONE AND CONTINUE ROUTINE CARE THERE. CM WILL CONTINUE TO MONITOR NEEDS OF PT.
[2019-10-27 11:43] VITALS: BP 133/75
--- NOTE | 2019-10-27 12:27 | PRM.PN ---
Subjective Subjective Date: Oct 27, 2019 Time: 10:30 Subjective Patient having continuing pain and nausea overnight. Labs reviewed showing elevated liver enzymes this AM. Concern for Choledocholithiasis. Transfer for GI evaluation and possible ERCP recommended to patient. She agreed but LANDRY calvillo at [facility] informed he would transfer patient to [place] if she needed ERCP. I discussed with patient and she does not want to go to [place]. She will continue conservative management and f/u outpatient with GI if symptoms improve. Patient History: FH: arthritis 32 MOTHER FH: atrial fibrillation 32 MOTHER FH: heart attack 33 FATHER Hypertension 33 FATHER No known health problems G8 SISTER 19 CHILD 19 CHILD 19 CHILD Unknown 33 FATHER G8 BROTHER G8 SISTER No Family History of: Alzheimer's disease Asthma Cerebrovascular disorder Chronic obstructive pulmonary disease Congestive heart failure Diabetes insipidus Diabetes mellitus Parkinson's disease VTE VTE Risk Total Score: 1 VTE Risk Score VTE Risk: Score 0-1 = Low Risk (Aggressive mobilization; early ambulation; no VTE prophylaxis required) Score 2: Moderate Risk (Intermittent/Pneumatic Compression Device OR Lovenox/Heparin/Coumadin) Score 3-4: High Risk (Intermittent/Pneumatic Compression Device AND Lovenox/Heparin/Coumadin) Score > or =5: Highest Risk (Intermittent/Pneumatic Compression Device AND Lovenox/Heparin/Coumadin) Review of Systems Allergies: Coded Allergies: No Known Allergies (Unverified , 04/20/19) Scheduled Meloxicam (Meloxicam), 1 TAB PO DAILY, (Reported) Discontinued Medications Pantoprazole Sodium (Pantoprazole Sodium), 1 TAB PO DAILY Discontinued Reason: No Longer Taking Tramadol Hcl (Tramadol Hcl), 1 TAB PO BID PRN for PAIN, (Reported) Discontinued Reason: No Longer Taking Objective Vitals and I/O Vital Sign - Last 24 Hours 10/25/19 10/25/19 10/25/19 10/25/19 13:21 13:25 13:25 14:30 Temp 97.1 97.1 97.1 Pulse 70 70 70 63 Resp 16 16 16 16 B/P (MAP) 145/85 (105) 137/81 (99) Pulse Ox 99 99 97 O2 Delivery Room Air Room Air 10/25/19 10/25/19 10/25/19 10/25/19 15:30 17:17 17:20 20:56 Temp 98.0 98.1 Pulse 65 72 66 Resp 16 18 20 B/P (MAP) 133/84 (100) 128/79 (95) 150/84 (106) Pulse Ox 96 98 97 O2 Delivery Room Air Room Air Room Air Room Air 10/25/19 10/26/19 10/26/19 10/26/19 22:23 00:47 05:36 07:15 Temp 97.8 98.4 Pulse 61 55 Resp 17 18 B/P (MAP) 138/76 (96) 113/64 (80) Pulse Ox 96 94 O2 Delivery Room Air Room Air Room Air Room Air 10/26/19 10/26/19 07:15 11:30 Temp 97.9 97.8 Pulse 56 58 Resp 18 18 B/P (MAP) 123/68 (86) 118/66 (83) Pulse Ox 95 97 O2 Delivery Room Air Room Air Intake and Output 10/25/19 10/25/19 10/26/19 15:00 23:00 07:00 Output Total 825 ml Balance -825 ml General: Alert, Oriented X3, Cooperative HEENT: Atraumatic, PERRLA, EOMI, Mucous membr. moist/pink Neck: Supple, No JVD Lungs: Clear to auscultation, Normal air movement Heart: Regular rate, Normal S1, Normal S2 Abdomen: Normal bowel sounds, Soft, No tenderness Extremities: No edema, Normal pulses Skin: No rashes, No breakdown, No significant lesion Neuro: Normal gait, Normal speech, Strength at 5/5 X4 ext, Normal tone, Sensation intact, Cranial nerves 3-12 NL Psych/Mental Status: Mental status NL, Mood NL All Results(Lab/Rad) Laboratory Tests Test 10/25/19 13:30 10/26/19 04:40 Urine Collection Type VOID Urine Color YELLOW Urine Appearance CLEAR Urine Bilirubin NEGATIVE MG/DL Urine Ketones NEGATIVE Urine Specific [place] 1.015 Urine pH 6.5 Urine Protein NEGATIVE Urine Urobilinogen NORMAL Urine Nitrate NEGATIVE Urine Leukocyte Esterase NEGATIVE Urine Blood NEGATIVE Urine WBC WBC/HPF Urine Glucose NORMAL White Blood Count 8.2 10^3/uL Red Blood Count 5.00 10^6/uL Hemoglobin 14.4 g/dL Hematocrit 43.8 % Mean Corpuscular Volume 87.6 fL Mean Corpuscular Hemoglobin 28.8 pg Mean Corpuscular Hemoglobin Concent 32.9 g/dL Red Cell Distribution Width 14.2 % Platelet Count 280 10^3/uL Mean Platelet Volume 10.2 fL Neutrophils (%) (Auto) 56.5 % Lymphocytes (%) (Auto) 21.5 % Monocytes (%) (Auto) 8.2 % Neutrophils # (Auto) 4.6 10^3/uL Lymphocytes # (Auto) 1.8 10^3/uL Monocytes # (Auto) 0.7 10^3/uL Absolute Immature Granulocyte (auto 0.01 10^3 u/L Absolute Eosinophils (auto) 1.1 10^3/uL Immature Granulocytes % 0.10 % Eosinophils % 13.6 % Basophils % 0.1 % Basophils # 0.0 10^3/uL Sodium Level 141 mmol/L Potassium Level 5.2 mmol/L Chloride Level 109.0 mmol/L Carbon Dioxide Level 26.4 mmol/L Glucose Level 112 mg/dL Blood Urea Nitrogen 10 mg/dL Creatinine 0.70 mg/dL Calcium Level 8.8 mg/dL Anion Gap 10.8 Estimated GFR () 105.9 BUN/Creatinine Ratio 14.0 Current Medications Medications (Trade) Dose Ordered Sig/Rosario Route PRN Reason Start Time Stop Time Status Last Admin Dose Admin Sodium Chloride 1,000 ml @ 1,200 mls/hr Q50M STAT IV 10/25/19 13:48 10/25/19 14:37 DC 10/25/19 14:01 Morphine Sulfate (Morphine Sulfate) 4 mg STAT STAT IV 10/25/19 13:51 10/25/19 21:01 DC 10/25/19 14:01 Sodium Chloride 1,000 ml @ STK-MED ONCE .ROUTE 10/25/19 13:59 10/25/19 14:00 DC Potassium Chloride/Dextrose/ Sod Cl 1,000 ml @ 100 mls/hr Q10H STAT IV 10/25/19 16:06 10/26/19 02:05 DC 10/25/19 16:06 Morphine Sulfate (Morphine Sulfate) 2 mg Q4H PRN IV PAIN 4 - 6 10/25/19 16:30 11/24/19 16:29 10/25/19 18:19 Ondansetron HCl (Zofran 4 Mg/2 ml Vial) 4 mg Q4H PRN IV NAUSEA / VOMITING 10/25/19 18:00 11/24/19 17:59 10/26/19 11:35 Alprazolam (Xanax) 0.25 mg Q6H PRN PO ANXIETY 10/25/19 18:00 11/24/19 17:59 Tramadol HCl (Ultram) 50 mg Q4HR PRN PO PAIN 4 - 6 10/25/19 18:00 11/24/19 17:59 Acetaminophen (Tylenol) 650 mg Q4H PRN PO PAIN 10/25/19 18:00 11/24/19 17:59 Calcium Carbonate/ Glycine (Tums) 1,000 mg Q4HR PRN PO INDIGESTION 10/25/19 18:00 11/24/19 17:59 Pantoprazole Sodium (Protonix Iv) 40 mg DAILY IV 10/26/19 09:00 10/25/19 18:59 DC Polyethylene Glycol (Miralax) 17 gm DAILY PRN PO CONSTIPATION 10/25/19 18:00 11/24/19 17:59 Enoxaparin Sodium (Lovenox) 40 mg Q24HRS SQ 10/25/19 18:00 11/24/19 17:59 Diphenoxylate HCl/ Atropine (Lomotil) 1 each PRN PRN PO DIARRHEA 10/25/19 18:00 11/24/19 17:59 Simethicone (Genasyme) 80 mg Q6HR PRN PO GAS 10/25/19 18:00 11/24/19 17:59 Diphenhydramine HCl (Benadryl) 25 mg Q6HR PRN PO INSOMNIA 10/25/19 18:00 10/25/19 21:00 DC Diphenhydramine HCl (Benadryl) 25 mg Q6HR PRN PO ITCHING 10/25/19 18:00 11/24/19 17:59 Pantoprazole Sodium (Protonix Iv) 40 mg DAILY IV 10/25/19 19:00 11/24/19 18:59 10/26/19 09:02 Potassium Chloride/Dextrose/ Sod Cl 1,000 ml @ ud STK-MED ONCE .ROUTE 10/26/19 11:31 10/26/19 11:33 DC Course Sepsis Screening Results: Posi: NEGATIVE Sepsis Qualifier/Stage: NO DEFINITE RISK Duration or Total Time Spent w: 45 mins Vitals & review Data Vital Sign - Last 24 Hours 12/28/19 12/28/19 12/28/19 13:21 13:25 13:25 Temp 97.1 97.1 97.1 Pulse 70 70 70 Resp 16 16 16 B/P (MAP) 145/85 (105) Pulse Ox 99 99 O2 Delivery Room Air Current Medications Medications (Trade) Dose Ordered Sig/Rosario PRN Reason Start Time Stop Time Status Last Admin Morphine Sulfate (Morphine Sulfate) 4 mg STAT STAT 10/25/19 13:51 10/25/19 13:52 UNV 10/25/19 14:01 Sepsis Infection Criteria Pres: Documented Infection LEVEL 1 SEPSIS INFECTION CRITE: None/Not assessed LEVEL 2-SIRS (LIST ALL THAT AP: None/Not assessed Cardiovascular Evidence: Not Assessed or None Hematologic Evidence: None/Not assessed Hepatic Evidence: Elevated AST(SGOT)>72, Elevated ALT(SGPT)>90 Metabolic Evidence: None/Not assessed Neurological Evidence: None/Not assessed Respiratory Evidence: None/Not assessed Renal Evidence: None/Not assessed O2 Sat by Pulse Oximetry: 96 Assessment/Plan Assessment/Plan Assessment/Plan 1. Acute Pancreatitis: cont IVF, pain control, and IV antiemetics. Lipase decreasing. Patient pain/nausea worsening over last 12 hours. Labs reviewed and concern for Choledocholithiasis. Transfer recommended and patient agreeable; however, GI in [facility] informed that he would transfer to [place] for ERCP and patient is not agreeable to going to [place]. She wishes to stay and continue with conservative management and f/u outpatient with GI. 2. PPx: PPI, Lovenox 3. Elevated Liver Enzymes: suspect Choledocholithiasis. Pending U/S from 10/25. glassware maker has called Radiology to find official read from Radiologist. Recheck CMP in AM. KILEY BUENO MD Oct 27, 2019 12:27
[2019-10-27 16:32] VITALS: BP 129/75
--- NOTE | 2019-10-27 17:30 | NUR ---
pt requesting a regular tray for dinner, per Dr. Young order she is being advanced as tolerated
[2019-10-27 20:00] VITALS: BP 113/63
[2019-10-28 05:19] LABS: BASOPHIL % 0.4 % (0.0-0.2); EOSINOPHIL % 11.1 % (0.0-5.0); LYMPHOCYTES # 3.1 10^3/uL (1.0-4.8); LYMPHOCYTES % 33.2 % (24.0-44.0); MEAN CORP HGB 28.7 pg (26-34); MONOCYTES # 0.7 10^3/uL (0.3-0.8); MONOCYTES % 7.4 % (5.0-12.0); NEUTROPHIL # 4.4 10^3/uL (1.8-7.7); NEUTROPHILS % 47.7 % (41.0-85.0); RED CELL DISTRIBUTION WIDTH 13.8 % (11.5-14.5)
[2019-10-28] MEDS: MORPHINE SULFATE IV PRN (05:38)
[2019-10-28 05:39] LABS: CALCIUM 8.9 mg/dL (8.4-10.5); CARBON DIOXIDE 26.6 mmol/L (20.0-32)
[2019-10-28] MEDS: ZOFRAN 4 MG/2 ML VIAL IV PRN (05:39)
[2019-10-28 06:09] VITALS: BP 121/61
[2019-10-28 09:15] VITALS: BP 107/63
[2019-10-28] MEDS: PROTONIX IV IV SCH (09:19)
[2019-10-28] MEDS ORDERED: TRAM50TA PO (14:22)
[2019-10-28] MEDS ORDERED: ONDA4TAB12 PO (14:22)
[2019-10-28] MEDS ORDERED: PANT40TA3 PO (14:22)
--- NOTE | 2019-10-28 15:01 | PRM.DC ---
Discharge Summary Date of Discharge: Oct 28, 2019 Time of Request to Discharge: 14:15 Reason for Visit: acute abdominal pain Hospital Course Patient admitted with acute pancreatitis. Patient was treated with bowel rest, IVF, IV antiemetics, and pain control. Patient symptoms slowly improved; however,lab evaluation showed elevated liver enzymes. Concern was for Choledocholithiasis. Transfer to higher acuity of care recommended. Transfer to [facility] initiated; however, GI specialist covering informed that he would not do ERCP and would transfer to [place] if needed. I discussed with patient and she refused transfer and did not want to go to [place]. Symptoms improved and liver enzymes decreased. Patient was able to tolerate diet. Patient was ambulating without issues. Patient would prefer to f/u with GI specialist outpatient to be evaluated. Patient needs EGD as well. Patient informed that she needed to f/u with GI within 1-2 weeks for further evaluation. Strict return precautions given. Patient History: FH: arthritis 32 MOTHER FH: atrial fibrillation 32 MOTHER FH: heart attack 33 FATHER Hypertension 33 FATHER No known health problems G8 SISTER 19 CHILD 19 CHILD 19 CHILD Unknown 33 FATHER G8 BROTHER G8 SISTER No Family History of: Alzheimer's disease Asthma Cerebrovascular disorder Chronic obstructive pulmonary disease Congestive heart failure Diabetes insipidus Diabetes mellitus Parkinson's disease General: Alert, Oriented X3, Cooperative, No acute distress HEENT: Atraumatic, PERRLA, EOMI, Mucous membr. moist/pink Neck: Supple, No JVD Lungs: Clear to auscultation, Normal air movement Heart: Regular rate, Normal S1, Normal S2, No murmurs Abdomen: Normal bowel sounds, Soft, No tenderness Extremities: No edema, Normal pulses, No tenderness/swelling Skin: No rashes, No breakdown, No significant lesion Neuro: Normal gait, Normal speech, Strength at 5/5 X4 ext, Normal tone, Sensation intact, Cranial nerves 3-12 NL Psych/Mental Status: Mental status NL, Mood NL Scheduled Meloxicam (Meloxicam), 1 TAB PO DAILY, (Reported) Pantoprazole Sodium (Protonix), 40 MG PO DAILY24 Scheduled PRN Ondansetron Hcl (Ondansetron Hcl), 4 MG PO Q4HR PRN for nausea Tramadol Hcl (Tramadol Hcl), 50 MG PO Q4HR PRN for PAIN 4 - 6 Discontinued Medications Pantoprazole Sodium (Pantoprazole Sodium), 1 TAB PO DAILY Discontinued Reason: No Longer Taking Tramadol Hcl (Tramadol Hcl), 1 TAB PO BID PRN for PAIN, (Reported) Discontinued Reason: No Longer Taking Sepsis Evaluation @ Discharge Vital Sign - Last 24 Hours 10/25/19 10/25/19 10/25/19 13:21 13:25 13:25 Temp 97.1 97.1 97.1 Pulse 70 70 70 Resp 16 16 16 B/P (MAP) 145/85 (105) Pulse Ox 99 99 O2 Delivery Room Air Current Medications Medications (Trade) Dose Ordered Sig/Rosario PRN Reason Start Time Stop Time Status Last Admin Morphine Sulfate (Morphine Sulfate) 4 mg STAT STAT 10/25/19 13:51 10/25/19 13:52 UNV 10/25/19 14:01 Course Sepsis Screening Results: Posi: NEGATIVE Sepsis Qualifier/Stage: NO DEFINITE RISK Duration or Total Time Spent w: 45 mins Vitals & review Data Vital Sign - Last 24 Hours 10/25/19 10/25/19 10/25/19 13:21 13:25 13:25 Temp 97.1 97.1 97.1 Pulse 70 70 70 Resp 16 16 16 B/P (MAP) 145/85 (105) Pulse Ox 99 99 O2 Delivery Room Air Current Medications Medications (Trade) Dose Ordered Sig/Rosario PRN Reason Start Time Stop Time Status Last Admin Morphine Sulfate (Morphine Sulfate) 4 mg STAT STAT 10/25/19 13:51 10/25/19 13:52 UNV 10/25/19 14:01 Sepsis Infection Criteria Pres: Documented Infection LEVEL 1 SEPSIS INFECTION CRITE: None/Not assessed LEVEL 2-SIRS (LIST ALL THAT AP: None/Not assessed Cardiovascular Evidence: Not Assessed or None Hematologic Evidence: None/Not assessed Hepatic Evidence: Elevated AST(SGOT)>72, Elevated ALT(SGPT)>90 Metabolic Evidence: None/Not assessed Neurological Evidence: None/Not assessed Respiratory Evidence: None/Not assessed Renal Evidence: None/Not assessed O2 Sat by Pulse Oximetry: 91 Plan Discharge Date: Oct 28, 2019 Dicharge DX: Acute Pancreatitis Discharge Disposition: Stable Plan ok to d/c to home self care medications: per med rec list Diet: Soft/[place] Activity: as tolerated Return to care for any worsening/concerning symptoms F/U with PCP/GI within 1-2 weeks KILEY BUENO MD Oct 28, 2019 15:01
[2019-10-28 16:30] VITALS: BP 127/77
--- NOTE | 2019-10-29 05:21 | DIREP ---
PROCEDURE: US ABDOMEN, UPPER COMPARISON: [facility], CT, CT ABD/PELVIS W/ CONTRAST, 10/15/2019, 07:39 PM. [facility], CT, CT ABD/PELVIS W/ CONTRAST, 10/25/2019, 02:36 PM. INDICATIONS: epigastric and RUQ pain FINDINGS: LIVER: Normal hepatic parenchymal architecture. SPLEEN: Normal parenchymal architecture. BILIARY: The gallbladder has been resected. The CBD internal diameter is 5 mm. PANCREAS: The tail has normal size and texture; the remainder is obscured by bowel gas. 6 mm pancreatic duct. LEFT KIDNEY: No hydronephrosis. Incompletely demonstrated. RIGHT KIDNEY: Length = 10.3 cm. No hydronephrosis. OTHER: Hepatopetal flow was demonstrated in the portal vein. CONCLUSION: Mildly dilated pancreatic duct. Cholecystectomy. Dictated by: Mercy Navas III, MD on 10/25/2019 at 09:14 PM [facility]
== END 2019-10-28 17:49 | disposition home or self-care (01) | DRG 440 ==
LOC: ER 13:12 → MS 16:22
PROVIDERS: ADMIT Internal Medicine; ATTEND Internal Medicine
DX: K85.90 Acute pancreatitis without necrosis or infection, unspecified (principal); K80.50 Calculus of bile duct without cholangitis or cholecystitis without obstruction; M19.90 Unspecified osteoarthritis, unspecified site; F17.210 Nicotine dependence, cigarettes, uncomplicated; Z90.49 Acquired absence of other specified parts of digestive tract; Z90.710 Acquired absence of both cervix and uterus; Z98.51 Tubal ligation status
CPT/HCPCS: 36415; 74177; 76705; 80048; 80053; 81002; 83690; 85025; 86677; 87086; 99285; C9113; G0378; J2270; J2405; J7030; J7070; Q9965

== ENCOUNTER → 2020-03-26 | Outpatient (CLI) | payer BC ==
[~2020-03-26] MED LIST changes: +ONDA-87 PO; +PANT40TA3 PO; -PANT40TA5 PO; +PANT40TA6 PO
== END | disposition home or self-care (01) ==
LOC: LAB 11:43
PROVIDERS: ATTEND Nurse Practitioner Family
DX: J06.9 Acute upper respiratory infection, unspecified (principal)
CPT/HCPCS: 87070; 87804; 87880

== ENCOUNTER → 2020-03-26 | Outpatient (CLI) | payer BC ==
[~2020-03-26] MED LIST changes: +PANT40TA5 PO; -PANT40TA6 PO
== END | disposition home or self-care (01) ==
LOC: NPLAB 14:12
PROVIDERS: ATTEND Nurse Practitioner Family
DX: J06.9 Acute upper respiratory infection, unspecified (principal); Z20.828 Contact with and (suspected) exposure to other viral communicable diseases
CPT/HCPCS: 36415; 87635

== ENCOUNTER → 2020-04-19 | Outpatient (CLI) | payer BC ==
--- NOTE | 2020-04-19 14:01 | DIREP ---
PROCEDURE:XRAY ABDOMEN SINGLE VW COMPARISON:[facility], CT, CT ABD/PELVIS W/ CONTRAST, 10/25/2019, 02:36 PM. INDICATIONS:ABD PAIN FINDINGS: BOWEL GAS PATTERN:Normal. CALCIFICATIONS:None significant. LUNG BASES:Clear. BONES:Normal. OTHER:Cholecystectomy clips CONCLUSION: 1. Nonobstructive bowel gas pattern and no acute findings. Dictated by: Eduard Navas Jr. on 04/19/2020 at 12:54 PM Read in [place]
== END | disposition home or self-care (01) ==
LOC: RAD 12:59
PROVIDERS: ATTEND Nurse Practitioner Family
DX: K59.01 Slow transit constipation (principal); R10.9 Unspecified abdominal pain
CPT/HCPCS: 74018

== ENCOUNTER → 2020-08-30 | Outpatient (CLI) | payer BC ==
[~2020-08-30] MED LIST changes: -PANT40TA5 PO; +PANT40TA6 PO
[2020-08-30 09:52] LABS: MEAN CORP HGB 27.7 pg (26-34); RED CELL DISTRIBUTION WIDTH 12.5 % (11.5-14.5)
[2020-08-30 10:15] LABS: ALANINE AMINOTRANSFERASE(ML) 26 U/L (12-78); ALKALINE PHOSPHATASE 139 U/L (50-136); ASPARTATE AMINO TRANSFERASE 19 U/L (0-35); CALCIUM 9.3 mg/dL (8.4-10.5); CARBON DIOXIDE 26.8 mmol/L (20.0-32); CHOLESTEROL 185 mg/dL (120-240); GLUCOSE 107 mg/dL (70-110); HDL CHOLESTEROL 46 mg/dL (32-96)
== END | disposition home or self-care (01) ==
LOC: LAB 09:29
PROVIDERS: ATTEND Nurse Practitioner Family
DX: K21.9 Gastro-esophageal reflux disease without esophagitis (principal); E03.9 Hypothyroidism, unspecified; R11.2 Nausea with vomiting, unspecified; R10.13 Epigastric pain; K29.70 Gastritis, unspecified, without bleeding
CPT/HCPCS: 36415; 80053; 80061; 82150; 83690; 84439; 84443; 85027; 86677

== ENCOUNTER → 2020-09-06 | Outpatient (CLI) | payer BC ==
--- NOTE | 2020-09-06 11:55 | DIREP ---
PROCEDURE:XRAY ESOPHAGUS COMPARISON:[facility], CT, CT ABD/PELVIS W/ CONTRAST, 10/25/2019, 02:36 PM. INDICATIONS:N/V, GASTRITIS, DYSPHAGIA, 93.35 mGy TECHNIQUE:The patient swallowed barium and effervescent material under fluoroscopic observation of the esophagus, stomach, and proximal small bowel. Multiple spot and overhead films were obtained. FINDINGS: ESOPHAGUS:No aspiration is encountered. No stricture or hiatal hernia. Mild esophageal slowing. No hiatal hernia. No reflux identified STOMACH:No gross filling defects OTHER:Negative. FLUORO TIME: 2.6 minutes NUMBER OF IMAGES: 15 CONCLUSION:Mild esophageal slowing, without reflux identified. No obstruction Dictated by: Eduard Suazo MD on 09/06/2020 at 11:48 AM
== END | disposition home or self-care (01) ==
LOC: RAD 09:42
PROVIDERS: ATTEND Nurse Practitioner Family
DX: R13.10 Dysphagia, unspecified (principal); R11.2 Nausea with vomiting, unspecified; K29.70 Gastritis, unspecified, without bleeding
CPT/HCPCS: 74220

== ENCOUNTER → 2020-12-03 | Outpatient (CLI) | payer BC ==
[2020-12-03 10:00] LABS: MEAN CORP HGB 27.3 pg (26-34); RED CELL DISTRIBUTION WIDTH 13.4 % (11.5-14.5)
--- NOTE | 2020-12-03 10:13 | DIREP ---
PROCEDURE:CHEST 2 VIEWS COMPARISON:[facility], CR, XRAY CHEST SINGLE VW, 10/25/2019, 03:51 AM. [facility], CR, XRAY CHEST 2 VWS, 04/17/2019, 03:28 AM. INDICATIONS:SOB, MICHELL, FATIGUE/MALAISE FINDINGS: LUNGS/PLEURA:No significant pulmonary parenchymal abnormalities. No effusions. VASCULATURE:Normal. Unremarkable pulmonary vasculature. CARDIAC:Normal. No cardiac silhouette abnormality or cardiomegaly. MEDIASTINUM:Normal. No visible mass or adenopathy. BONES:Normal. No fracture or visible bony lesion. OTHER:Negative. CONCLUSION:No active disease. There is no significant change as compared with the previous examination. Dictated by: Javier Garcia M.D. on 12/03/2020 at 10:11 AM
[2020-12-03 10:23] LABS: CARBON DIOXIDE 28.1 mmol/L (20.0-32)
== END | disposition home or self-care (01) ==
LOC: LAB 09:14
PROVIDERS: ATTEND Nurse Practitioner Family
DX: R06.02 Shortness of breath (principal); R53.83 Other fatigue; M19.90 Unspecified osteoarthritis, unspecified site; R53.81 Other malaise; E03.9 Hypothyroidism, unspecified
CPT/HCPCS: 36415; 71046; 80053; 84439; 84443; 84480; 85027

== ENCOUNTER → 2020-12-06 | Outpatient (CLI) | payer BC | END | disposition home or self-care (01) | LOC: RT 16:00 | PROVIDERS: ATTEND Nurse Practitioner Family | DX: R06.02 Shortness of breath (principal); G47.33 Obstructive sleep apnea (adult) (pediatric); R53.83 Other fatigue; R53.81 Other malaise; E03.9 Hypothyroidism, unspecified | CPT/HCPCS: 94010 ==

== ENCOUNTER → 2021-03-11 | Outpatient (CLI) | payer BC ==
--- NOTE | 2021-03-11 15:59 | DIREP ---
PROCEDURE:XRAY TMJ-BILAT COMPARISON:None. INDICATIONS:PAIN WITH CHEWING, JAW PAIN FINDINGS: BONES:Normal. JOINTS:Normal. SOFT TISSUES:Normal. OTHER:No additional findings. CONCLUSION:Within normal limits. Dictated by: Valeriano Jama M.D. on 03/11/2021 at 03:56 PM
--- NOTE | 2021-03-11 16:42 | DIREP ---
PROCEDURE:XRAY FACIAL,COMPLETE MIN 3 VW COMPARISON:[facility], CR, XRAY TMJ-BILAT, 03/11/2021, 03:17 PM. INDICATIONS:PAIN WITH CHEWING, JAW PAIN FINDINGS: BONES:No visible fracture SINUSES:No air-fluid levels SOFT TISSUES:Normal. OTHER:Multiple dental fillings, missing teeth seen in the mandible. CONCLUSION: 1. No visible facial fracture. 2. TMJ disorder is not well assessed by radiographs, if concern for TMJ abnormality persists consider maxillofacial surgeon referral and/or TMJ MRI. Dictated by: Jesse Petersen M.D. on 03/11/2021 at 04:39 PM
== END | disposition home or self-care (01) ==
LOC: RAD 15:07
PROVIDERS: ATTEND Nurse Practitioner Family
DX: R68.84 Jaw pain (principal)
CPT/HCPCS: 70150; 70330

== ENCOUNTER → 2021-05-17 | Outpatient (CLI) | payer BC ==
--- NOTE | 2021-05-17 15:16 | PCM.EKG ---
[facility] Test Date: 2021-05-17 Test Time: 14:07:36 Pat Name: EVA BARRIOS Department: Room: Gender: F Records Administrator: JOHN : 1965 Requested By: BINTA HORNER Order Number: [id number] Reading MD: Measurements Intervals [place] Rate: 54 P: 70 ME: 177 QRS: 78 QRSD: 97 T: 65 QT: 451 QTc: 428 Interpretive Statements Sinus rhythm Compared to ECG 10/25/2019 03:50:35 No significant changes Please click the below link to view image of tracing.
--- NOTE | 2021-05-20 01:35 | ECHO ---
DATE OF SERVICE: 05/17/2021 DICTATOR NAME: Erna Mendez MD INDICATION: A 55-year-old female with post COVID status, COPD, dyspnea. PRIMARY PHYSICIAN: Erin Anderson, nurse practitioner. Echo interpreted by Dr. Mendez. Mitral valve shows mild mitral regurgitation velocity of 2 meters. Normal E to A ratio, normal aorta with normal aortic valve opening of 4.4 square cm. Tricuspid valve shows mild tricuspid regurgitation. Right ventricular systolic pressure of 19 mm. RV is enlarged to 3.1 cm. Right atrium is normal. Left atrium is mildly enlarged to 4.2 cm, left ventricle is normal in size around 4.94 cm, end diastolic dimension 3.55 cm, end-systolic dimension normal wall thickness motion, contraction, ejection fraction 57%. Pericardium is normal. Hence normal LV function, RV enlargement, may have some degree of cor pulmonale. No significant valvular abnormality documented. No thrombus in any other cardiac chambers. IVC is normal. Erna Mendez MD DR: CHAVA/GIO TID: [id number] RECEIPT: [id number]
== END | disposition home or self-care (01) ==
LOC: RT 13:29
PROVIDERS: ATTEND Nurse Practitioner Family
DX: I08.1 Rheumatic disorders of both mitral and tricuspid valves (principal); R06.02 Shortness of breath; J44.9 Chronic obstructive pulmonary disease, unspecified; R06.09 Other forms of dyspnea
CPT/HCPCS: 93005; 93306; 94060; 94726; 94729

== ENCOUNTER → 2021-06-16 | Outpatient (CLI) | payer BC ==
[2021-06-16 09:48] LABS: CARBON DIOXIDE 29.1 mmol/L (20.0-32)
== END | disposition home or self-care (01) ==
LOC: LAB 09:11
PROVIDERS: ATTEND Internal Medicine Cardiovascular Disease
DX: R07.9 Chest pain, unspecified (principal)
CPT/HCPCS: 36415; 80053; 80061; 82533

== ENCOUNTER → 2021-08-05 | Outpatient (CLI) | payer BC ==
--- NOTE | 2021-08-05 13:51 | DIREP ---
PROCEDURE:XRAY SHOULDER MIN 2 VWS-LT COMPARISON:CR, XRAY CHEST 2 VWS, 12/03/2020, 09:48 AM. INDICATIONS:LEFT SHOULDER PAIN FINDINGS: BONES:No fracture identified. JOINTS:AC and glenohumeral joint spaces are within normal limits. No evidence of dislocation. SOFT TISSUES:Normal. OTHER:Normal. CONCLUSION: 1. No fracture or evidence of joint dislocation. Dictated by: Gregory Armstrong MD on 08/05/2021 at 01:49 PM
--- NOTE | 2021-08-05 14:04 | DIREP ---
PROCEDURE:XRAY SPINE LUMBAR 2-3 VWS COMPARISON:CR, XRAY ABDOMEN SINGLE VW, 04/19/2020, 01:22 PM. [facility], CT, CT ABD/PELVIS W/ CONTRAST, 10/25/2019, 02:36 PM. INDICATIONS:LUMBAGO W PARASTHESIAS, ARTHALGIAS, MYLAGIAS, COUGH SOB, ASTHMA TECHNIQUE:AP, lateral, and coned down lateral views of the lumbar spine are provided. FINDINGS: ALIGNMENT:Maintenance of normal lordosis. VERTEBRAE:No fracture identified. Degenerative change, including anterior osteophytosis and facet arthrosis. DISK SPACES:Mild loss of disc space height at L5-S1. Otherwise, disc space height maintained SPONDYLOLISTHESIS:None. SACROILIAC JOINTS:Normal. OTHER:Status post cholecystectomy. No biliary ductal dilatation. CONCLUSION: 1. No lumbar vertebral fracture identified. 2. Degenerative change, as described. Dictated by: Gregory Armstrong MD on 08/05/2021 at 02:01 PM
--- NOTE | 2021-08-05 14:11 | DIREP ---
PROCEDURE:XRAY SPINE THORACIC 3 VWS COMPARISON:None. INDICATIONS:LUMBAGO W PARASTHESIAS, ARTHALGIAS, MYLAGIAS, COUGH SOB, ASTHMA TECHNIQUE:AP & lateral views of the thoracic spine and a swimmer's view of the cervicothoracic junction are provided. FINDINGS: ALIGNMENT:Maintenance of normal kyphosis. VERTEBRAE:No fracture identified. Degenerative change, including anterior osteophytosis. DISK SPACES:Maintenance of disc space height. OTHER:Normal. CONCLUSION: 1. No thoracic vertebral fracture identified. 2. Degenerative change. Dictated by: Gregory Armstrong MD on 08/05/2021 at 02:07 PM
--- NOTE | 2021-08-05 14:35 | DIREP ---
PROCEDURE:CT CHEST W/O COMPARISON:[facility], CR, XRAY CHEST 2 VWS, 12/03/2020, 09:48 AM. [facility], CT, CT ABD/PELVIS W/ CONTRAST, 10/25/2019, 02:36 PM. INDICATIONS:COUGH SOB, ASTHMA TECHNIQUE:Helical sections through the chest were performed from the lung apices through the diaphragms without IV contrast. Sagittal and coronal reconstructions are obtained from source images. FINDINGS: LUNGS:No significant pulmonary parenchymal abnormalities. PLEURA:Normal. No mass or effusion. CARDIAC:Normal. No enlargement, pericardial thickening, or significant calcification. MEDIASTINUM:Normal. No mass or adenopathy. GIGI:Normal. No mass or adenopathy. AORTA:Normal. No aneurysm. CHEST WALL:Normal. No mass or axillary adenopathy. LIMITED ABDOMEN:Cholecystectomy. Stable small bilateral adrenal adenomas.. Limited images of the upper abdomen are otherwise unremarkable. BONES:Normal. No bony lesion or fracture. OTHER:Negative. CONCLUSION: 1. No significant pulmonary parenchymal abnormalities. 2. Prior cholecystectomy. 3. Stable small bilateral adrenal adenomas. Dictated by: Javier Garcia M.D. on 08/05/2021 at 02:26 PM
--- NOTE | 2021-08-05 16:50 | DIREP ---
PROCEDURE:XR SPINE CERVICAL 2 OR 3 VIEWS COMPARISON:None. INDICATIONS:CERVICALGIA TECHNIQUE:AP, lateral, and dens views of the cervical spine are provided. FINDINGS: ALIGNMENT:Normal. VERTEBRAE:Normal vertebral height. Diffuse anterior osteophyte formation. Mild diffuse facet arthrosis. DISK SPACES:Mild loss of height at the C5-6 and C6-7 levels. CERVICAL RIBS:None. OTHER:Normal. CONCLUSION:Degenerative changes without acute bony abnormality. Dictated by: Harmony Snider M.D. on 08/05/2021 at 04:48 PM
--- NOTE | 2021-08-05 18:28 | DIREP ---
PROCEDURE:XRAY HIP MIN 2VW-LT COMPARISON:None. INDICATIONS:LUMBAGO W PARASTHESIAS, ARTHALGIAS, MYLAGIAS, COUGH SOB, ASTHMA FINDINGS: BONES:Normal. JOINTS:Left superior femoroacetabular marginal osteophyte formations with subchondral cyst in the lateral left acetabular roof. Mild superior femoroacetabular joint space narrowing. SOFT TISSUES:Normal. OTHER:No additional findings. CONCLUSION:Hfgj-xr-aximjnop degenerative changes in left hip. Dictated by: Mat Pacheco MD on 08/05/2021 at 06:22 PM
== END | disposition home or self-care (01) ==
LOC: RAD 12:29
PROVIDERS: ATTEND Nurse Practitioner Family
DX: M16.12 Unilateral primary osteoarthritis, left hip (principal); M25.752 Osteophyte, left hip; M25.852 Other specified joint disorders, left hip; M47.812 Spondylosis without myelopathy or radiculopathy, cervical region; M50.31 Other cervical disc degeneration, high cervical region; M25.78 Osteophyte, vertebrae; M47.814 Spondylosis without myelopathy or radiculopathy, thoracic region; M47.816 Spondylosis without myelopathy or radiculopathy, lumbar region; M51.37 Other intervertebral disc degeneration, lumbosacral region; D36.7 Benign neoplasm of other specified sites; D35.02 Benign neoplasm of left adrenal gland; D35.01 Benign neoplasm of right adrenal gland; R06.02 Shortness of breath; R05.9 Cough, unspecified; J45.909 Unspecified asthma, uncomplicated; M79.10 Myalgia, unspecified site; M25.50 Pain in unspecified joint
CPT/HCPCS: 71250; 72040; 72072; 72100; 73502; 73030-LT

== ENCOUNTER → 2021-10-03 | Outpatient (CLI) | payer BC ==
--- NOTE | 2021-10-04 01:25 | DIREP ---
PROCEDURE:XRAY SHOULDER MIN 2 VWS-LT COMPARISON:[facility], CR, XRAY SHOULDER MIN 2 VWS-LT, 08/05/2021, 12:45 PM. INDICATIONS:LEFT SHOULDER PAIN, SWELLING FINDINGS: Two views of the left shoulder. No fracture or dislocation identified. Acromioclavicular and coracoclavicular distances are not widened. The acromioclavicular joint does measure upper normal in width but is unchanged and there is no malalignment of the lateral aspect of the clavicle with the acromion. No radiopaque foreign body. CONCLUSION: 1. Left shoulder, no fracture or dislocation identified. Please see above comment. Dictated by: Mariam Gutierrez MD on 10/04/2021 at 01:23 AM
== END | disposition home or self-care (01) ==
LOC: RAD 15:53
PROVIDERS: ATTEND Nurse Practitioner Family
DX: M25.512 Pain in left shoulder (principal)
CPT/HCPCS: 73030-LT